=== PATIENT | female | born 1940 | race Caucasian/White ===

== ENCOUNTER → 2016-04-19 | Day surgery (SDC) | payer MEDICARE, OTHER ==
[~2016-04-19] MED LIST: Acetaminophen TAB* 325 MG PO PRN; Buffered Lidocaine 1% SYR 3ML* 3 ML/SYR SYRINGE INTRADERM ONE; Buffered Lidocaine 1% SYR 3ML* 3 ML/SYR SYRINGE ONE; Cyclopentolate 1% OPTH.SOL* 2 ML BTL ONE; Flurbiprofen 0.03% OPTH.SOL* 2.5 ML BTL ONE; Lidocaine 1% MPF* 2 ML VIAL ONE; Midazolam* 1 MG/ML 2 ML VIAL (2 MG) ONE; Neomycin/Polymy/Dex OPHTH.OIN* 3.5 GM ONE; Phenylephrine 2.5% OPTH.SOL* 2 ML BTL ONE; Tetracaine 0.5% OPTH.SOL 4 ML* 1 DROP BTL ONE; Tropicamide 1% OPTH.SOL* BTL ONE
[2016-04-19 09:52] VITALS: BP 141/63
--- NOTE | 2016-04-19 12:02 | OP ---
DATE OF OPERATION: 04/19/16 [facility] DATE OF : 44 SURGEON: Dr. João Castorena. KNOT BUMPER: None. ANESTHESIA: Topical with intravenous sedation. PRE-OP DIAGNOSIS: Cataract, left eye. POST-OP DIAGNOSIS: Cataract, left eye. OPERATIVE PROCEDURE: Phacoemulsification and cataract extraction with posterior chamber intraocular lens implant, left eye. COMPLICATIONS: None. BLOOD LOSS: None. DESCRIPTION OF PROCEDURE: The patient was brought to the operating room and received a small amount of intravenous sedation. A drop of Tetracaine was placed in her left eye. She was prepped and draped in the usual sterile fashion for ophthalmic surgery and attention was directed to the left eye where a speculum was placed. A paracentesis was created at the 5 o'clock position and 0.1 cc of 1 percent preservative-free Lidocaine was injected into the anterior chamber followed by DisCoVisc. The eye was digitally stabilized while a 2.75 mm keratome was used to create a triplanar clear corneal incision at the 3 o'clock position. A continuous curvilinear capsulorrhexis was created with a cystotome and Utrata forceps. BSS on a cannula was used to hydrodissect the lens from the capsule. Phacoemulsification was performed in a divide-and- conquer technique to create four fragments which were removed. Residual cortical material was removed with irrigation and aspiration. DisCoVisc was used to inflate the capsular bag and an SN60AT 19.0-diopter lens was folded and inserted into the capsular bag. DisCoVisc was removed using irrigation and aspiration. BSS on a cannula was used to hydrate the corneal stroma and seal the wound. At the end of the case the pupil was round and the lens was centered. The eye was of normal pressure and the wound was water tight. The speculum was removed and topical Maxitrol ointment was placed on the surface of the eye. The eye was closed, patched and shielded and the patient was sent to the recovery room in stable condition with post operative instructions and follow-up appointment given. [id number] #: [id number] MTDD
== END | disposition home or self-care (01) ==
LOC: OREAST 07:30
PROVIDERS: ATTEND Ophthalmology
DX: H25.12 Age-related nuclear cataract, left eye (principal); F17.210 Nicotine dependence, cigarettes, uncomplicated; E03.9 Hypothyroidism, unspecified; J44.9 Chronic obstructive pulmonary disease, unspecified
CPT/HCPCS: A9270-GY; J2250; V2632

== ENCOUNTER → 2016-04-26 07:48 | Day surgery (SDC) | payer MEDICARE, OTHER ==
[~2016-04-26 07:48] MED LIST changes: -Buffered Lidocaine 1% SYR 3ML* 3 ML/SYR SYRINGE ONE
[2016-04-26 09:57] VITALS: BP 122/59
--- NOTE | 2016-04-27 14:52 | OP ---
DATE OF OPERATION: 04/26/16 [facility] DATE OF : 44 SURGEON: Dr. João Castorena. [employer] OFFICER: None. ANESTHESIOLOGIST: Chance Hutchison DO ANESTHESIA: Topical with intravenous sedation. PRE-OP DIAGNOSIS: Cataract, right eye. POST-OP DIAGNOSIS: Cataract, right eye. OPERATIVE PROCEDURE: Phacoemulsification and cataract extraction with posterior chamber intraocular lens implant, right eye. COMPLICATIONS: None. BLOOD LOSS: None. DESCRIPTION OF PROCEDURE: The patient was brought to the operating room and received a small amount of intra-venous sedation. A drop of Tetracaine was placed in her right eye. She was prepped and draped in the usual sterile fashion for ophthalmic surgery and attention was directed to the right eye where a speculum was placed. A paracentesis was created at the 11 o'clock position and 0.1 cc of 1 percent preservative-free Lidocaine was injected into the anterior chamber followed by DisCoVisc. The eye was digitally stabilized while a 2.75 mm keratome was used to create a triplanar clear corneal incision at the 9 o'clock position. A continuous curvilinear capsulorrhexis was created with a cystotome and Utrata forceps. BSS on a cannula was used to hydrodissect the lens from the capsule. Phacoemulsification was performed in a divide-and- conquer technique to create four fragments which were removed. Residual cortical material was removed with irrigation and aspiration. DisCoVisc was used to inflate the capsular bag and an SN60AT 17.5 diopter lens was folded and inserted into the capsular bag. DisCoVisc was removed using irrigation and aspiration. BSS on a cannula was used to hydrate the corneal stroma and seal the wound. At the end of the case the pupil was round and the lens was centered. The eye was of normal pressure and the wound was water tight. The speculum was removed and topical Maxitrol ointment was placed on the surface of the eye. The eye was closed, patched and shielded and the patient was sent to the recovery room in stable condition with post operative instructions and follow-up appointment given. [id number]/CPS #: [id number] MTDD
== END | disposition home or self-care (01) ==
LOC: OREAST 07:48
PROVIDERS: ATTEND Ophthalmology
DX: H25.11 Age-related nuclear cataract, right eye (principal); F17.210 Nicotine dependence, cigarettes, uncomplicated; J44.9 Chronic obstructive pulmonary disease, unspecified; E03.9 Hypothyroidism, unspecified; Z68.32 Body mass index [BMI] 32.0-32.9, adult
CPT/HCPCS: A9270-GY; J2250; V2632

== ENCOUNTER 2016-09-29 07:47 | Emergency (ER) | payer MEDICARE, OTHER ==
[2016-09-29 07:56] VITALS: BP 143/77
--- NOTE | 2016-09-29 08:31 | UC ---
Lower Extremity/Ankle HPI - HPI Summary HPI Summary: 75 yo female with right foot pain x days has twisted foot pain both lateral foot and heel - History of Current Complaint Chief Complaint: UCLowerExtremity Stated Complaint: FOOT INJURY Time Seen by Provider: 09/29/16 08:20 Hx Obtained From: Patient Onset/Duration: Gradual Onset, Lasting Days, Worse Since - 1 day Severity Initially: Mild Severity Currently: Moderate Pain Intensity: 4 - worse with wt bearing Pain Scale Used: 0-10 Numeric Aggravating Factor(s): Standing, Ambulation Alleviating Factor(s): Rest Able to Bear Weight: Yes - Allergies/Home Medications Allergies/Adverse Reactions: Allergies Allergy/AdvReac Type Severity Reaction Status Date / Time Penicillins Allergy Intermediate Rash Verified 09/29/16 07:51 Sulfa Antibiotics Allergy Intermediate Rash Verified 09/29/16 07:51 Home Medications: Home Medications Ibuprofen TAB* [Advil TAB*] 2 tab PO PRN 09/29/16 [History] PMH/Surg Hx/FS Hx/Imm Hx Previously Healthy: Yes - hx plantar fasciitis - Surgical History Surgical History: Yes Surgery Procedure, Year, and Place: 1969'S CSECTIONS X 3,. 1982 HYSTERECTOMY, [facility]. 1979'S LEFT FOOT SURGERY X 3. RIGHT FOOT SURGERY X1, [facility]. COLONOSCOPIES X 2, [facility]. CHOLECYSTECTOMY - Family History Known Family History: Positive: Hypertension - Social History Alcohol Use: Daily Alcohol Amount: 3 OZ OF WINE A DAY Substance Use Type: None Smoking Status (MU): Light Every Day Tobacco Smoker Type: Cigarettes Amount Used/How Often: LESS THAN A PPD Length of Time of Smoking/Using Tobacco: 50+ YEARS Have You Smoked in the Last Year: Yes Review of Systems Constitutional: Negative Skin: Negative Eyes: Negative ENT: Negative Respiratory: Negative Cardiovascular: Negative Gastrointestinal: Negative Genitourinary: Negative Motor: Negative Neurovascular: Negative Musculoskeletal: Arthralgia Neurological: Negative Psychological: Negative All Other Systems Reviewed And Are Negative: Yes Physical Exam Triage Information Reviewed: Yes Appearance: Well-Appearing, No Pain Distress, Well-Nourished Vital Signs: Initial Vital Signs Temp 98.7 F 09/29/16 07:51 Pulse 114 09/29/16 07:51 Resp 16 09/29/16 07:51 BP 143/77 09/29/16 07:51 Pulse Ox 97 09/29/16 07:51 Vital Signs Reviewed: Yes Eyes: Positive: Conjunctiva Clear ENT: Positive: Hearing grossly normal. Negative: Nasal congestion, Nasal drainage, Trismus, Muffled/hoarse voice Neck: Positive: Supple, Nontender Respiratory: Positive: Lungs clear, Normal breath sounds, No respiratory distress Cardiovascular: Positive: RRR, No Murmur, Tachycardia Musculoskeletal: Positive: Other: - see image Neurological: Positive: Alert Psychological Exam: Normal Skin Exam: Normal Lower Extremity Course/Dx - Differential Dx/Diagnosis Provider Diagnoses: right foot sprain. heel spur. plantar fasciitis Discharge - Discharge Plan Condition: Stable Disposition: HOME Patient Education Materials: Plantar Fasciitis (ED), Foot Sprain (ED) Referrals: Chloe Wolf MD [Primary Care Provider] - 2 Weeks (recheck for follow up of BP and pulse) Additional Instructions: see your parachute repairer as planned CAM boot advil Images Feet (Multiple View): 1 - tender 2 - tender (mild)
--- NOTE | 2016-09-29 08:53 | RAD ---
Indication: Right foot injury. 3 views of the right foot demonstrates no fracture. Inferior calcaneal spur is noted. IMPRESSION: No fracture of the right foot is noted.
== END 2016-09-29 09:16 | disposition home or self-care (01) ==
LOC: UCEAST 07:47
DX: S93.601A Unspecified sprain of right foot, initial encounter (principal); X50.1XXA Overexertion from prolonged static or awkward postures, initial encounter; Y93.9 Activity, unspecified; Y92.9 Unspecified place or not applicable; Y99.9 Unspecified external cause status; M77.31 Calcaneal spur, right foot; M72.2 Plantar fascial fibromatosis; Z72.0 Tobacco use
CPT/HCPCS: 99212; G0463

== ENCOUNTER 2023-06-29 06:18 | Observation (INO) ==
[2023-06-29] MEDS ORDERED: ceFAZolin 2 GM PREMIX 2 GM/50 ML BAG ONE (06:45)
[2023-06-29] MEDS ORDERED: Tranexamic Acid 1 GM/100ML BAG 2,000 MG/200 ML BAG IV ONE (06:45)
[2023-06-29 07:11] LABS: Rapid COVID-19 Molecular Undetected (Undetected)
[2023-06-29] MEDS ORDERED: Midazolam 2 mg/2 ml VIAL 1 mg/ml 2 ml VIAL (2 mg) ONE ×2 (08:08→08:46)
[2023-06-29] MEDS ORDERED: Phenylephrine IV 10 MG/ML 1 ml VIAL ONE (08:09)
[2023-06-29] MEDS ORDERED: fentaNYL 100 mcg/2 ml 50 MCG/ML VIAL ONE ×5 (08:09→14:04)
[2023-06-29] MEDS ORDERED: Lidocaine 2% PF 5 ML VIAL ONE (08:09)
[2023-06-29] MEDS ORDERED: Scopolamine 1 mg/72hr PATCH TRANSDERM PRN (08:44)
[2023-06-29] MEDS ORDERED: Naloxone 0.4 mg VIAL 0.4 mg/ml 1 ml VIAL IV PRN (08:44)
[2023-06-29] MEDS ORDERED: ROPIVACAINE 5 MG/ML 30 ML BTL (0.5%) ONE ×2 (08:54→09:39)
[2023-06-29] MEDS ORDERED: Famotidine IV 10 MG/ML 2 ml VIAL (20 mg) ONE (09:59)
[2023-06-29] MEDS ORDERED: Magnesium Hydroxide LIQ 30 ML UDC PO PRN (10:09)
[2023-06-29] MEDS ORDERED: Morphine 2 MG/ML SYRINGE IV PRN (10:09)
[2023-06-29] MEDS ORDERED: Ondansetron 4 mg VIAL 2 MG/ML 2 ml VIAL IV PRN (10:09)
[2023-06-29] MEDS ORDERED: Lactulose 30 ml UDC PO PRN (10:09)
[2023-06-29] MEDS ORDERED: Ondansetron ODT 4 mg TAB 4 MG TAB PO PRN (10:09)
[2023-06-29] MEDS ORDERED: Metoprolol Tartrate 5 mg VIAL 5 ml VIAL (1 mg/ml) ONE (11:13)
[2023-06-29] MEDS ORDERED: Esmolol 10 MG/ML 10 ML (100 mg) IV ONE (11:13)
[2023-06-29] MEDS ORDERED: Labetalol IV 5 MG/ML 20 ml VIAL ONE (11:17)
[2023-06-29] MEDS ORDERED: Acetaminophen IV 1 GM/100ML 1,000 MG/100 ML BAG IV ONE (11:26)
[2023-06-29] MEDS ORDERED: Ondansetron 4 mg VIAL 2 MG/ML 2 ml VIAL ONE (12:12)
[2023-06-29] MEDS: Buffered Lidocaine 1% SYRIN 1 ml INTRADERM ONE (13:06)
[2023-06-29] MEDS ORDERED: HYDROmorphone 1 MG/1 ML SYRINGE ONE (13:07)
[2023-06-29] MEDS ORDERED: Scopolamine 1 mg/72hr PATCH ONE (13:07)
[2023-06-29] MEDS: HYDROmorphone 1 MG/1 ML SYRINGE IV PRN (13:08)
[2023-06-29] MEDS: Scopolamine 1 mg/72hr PATCH TRANSDERM ONE (13:09)
[2023-06-29] MEDS: Lactated Ringers 1000 ml BAG 1,000 ML IV SCH ×2 (13:10→15:22)
[2023-06-29] MEDS ORDERED: HYDROmorphone 1 MG/1 ML SYRINGE IV PRN (14:11)
[2023-06-29] MEDS: fentaNYL 100 mcg/2 ml 50 MCG/ML VIAL IV SLOW PU PRN (14:12)
[2023-06-29] MEDS ORDERED: Albuterol HFA INHALER 8 gm MDI INH PRN (17:22)
[2023-06-29] MEDS: ceFAZolin 1 GM ADVAN 1 GM in NS 0.9% 50 ML 50 ML IVPB SCH (21:20)
[2023-06-29] MEDS: Magnesium Hydroxide LIQ 30 ML UDC PO SCH (21:22)
[2023-06-29] MEDS: Mometasone/Formoter 200/5 MDI INH SCH (21:25)
[2023-06-30 06:59] LABS: Hematocrit 35.2 % (35-45); Mean Platelet Volume 8.1 fL (7.5-11.2); Platelet Count 194 10^3/uL (150-450)
[2023-06-30 07:05] LABS: Calcium 8.7 mg/dL (8.6-10.3); Creatinine, Serum 0.85 mg/dL (0.51-0.95); Potassium 5.1 mmol/L (3.5-5.0); eGFR CKD-EPI 69.2 (>60)
[2023-06-30] MEDS: Nicotine PATCH 21 MG/24 HR PATCH TRANSDERM SCH (08:02)
[2023-06-30] MEDS: Vitamin THERAPEUTIC TAB PO SCH (08:02)
[2023-06-30 09:39] VITALS: BP 106/48
== END 2023-06-30 13:10 | disposition home or self-care (01) ==
LOC: SSU 06:18 → OR 06:18
PROVIDERS: ADMIT Orthopaedic Surgery Adult Reconstructive Orthopaedic Surgery; ATTEND Orthopaedic Surgery Adult Reconstructive Orthopaedic Surgery